=== PATIENT | female | born 1945 ===

== ENCOUNTER → 2022-08-25 | Outpatient (CLI) | payer OTHER | END | disposition home or self-care (01) | LOC: RAD 13:07 | DX: E04.2 Nontoxic multinodular goiter (principal); I10 Essential (primary) hypertension; R06.00 Dyspnea, unspecified ==

== ENCOUNTER 2022-09-19 12:55 | Outpatient (CLI) | payer OTHER | END 2022-09-19 13:08 | disposition home or self-care (01) | LOC: TOM 12:55 | PROVIDERS: ATTEND Internal Medicine | DX: U07.1 COVID-19 (principal) ==